=== PATIENT | female | born 1940 ===

== ENCOUNTER → 2022-12-13 | Outpatient (CLI) | payer MEDICARE, BC ==
[~2022-12-13] VITALS: Ht 157.5 cm; Wt 125.0 kg
[~2022-12-13] MED LIST: ACET-2247 PO; ACET650S24 PR; APIX2.5T PO; BISA10SU11 PR; FERR-82 PO; FLUO10CA24 PO; HYDR25TA2 PO; LORA10TA7 PO; LOSA-382 PO; MAGN-169 PO; METF-1211 PO; METH50TA5 PO; METO25 PO; MULT-660 PO; PANT-31 PO; PRAV40TA4 PO; SENN-376 PO
[2022-12-13 09:16] VITALS: BP 106/57; PULSE 82; RESP 16; TEMP 98.2; O2SAT 97
== END | disposition home or self-care (01) ==
LOC: SRCNTR 09:02
PROVIDERS: ATTEND Internal Medicine
DX: R91.8 Other nonspecific abnormal finding of lung field (principal); R59.0 Localized enlarged lymph nodes; I12.9 Hypertensive chronic kidney disease with stage 1 through stage 4 chronic kidney disease, or unspecified chronic kidney disease; E11.22 Type 2 diabetes mellitus with diabetic chronic kidney disease; N18.9 Chronic kidney disease, unspecified; D63.1 Anemia in chronic kidney disease
CPT/HCPCS: G0463; Z7500